=== PATIENT | female | born 1970 | race African-American/Black ===

== ENCOUNTER 2019-06-10 18:42 | Emergency (ER) | payer OTHER, SELFPAY ==
[2019-06-10 18:51] VITALS: BP 135/76; PULSE 78; RESP 16; TEMP 36.6; O2SAT 100
--- NOTE | 2019-06-10 18:59 | ED.GENADULT ---
HPI - General Adult General Chief complaint: Upper Respiratory Infection Stated complaint: eye irritation/cough/runny nose Time Seen by Provider: 06/10/19 19:00 Source: patient and RN notes reviewed Mode of arrival: ambulatory Limitations: no limitations History of Present Illness HPI narrative: 49-year-old -[place] female presents with complaints of right eye redness, irritation, small amount of white drainage, and itching for the past 7 day. No treatment. Slightly matted for the last 2 morning upon arising. Claire says she was recently exposed to [place] by one of her grandchildren. No pain. No copious drainage. Exacerbating factors is opening eye. Relieving factors is closing eyes. Wear glasses or contact lenses. No blurred vision, double vision, sensation of foreign body, or pain of eye with movement. Complains of upper respiratory symptoms for the past 7 days. Dry cough. No chest congestion. Vicks and Robitussin with little to no relief. No sore throat. No high fevers, drooling, neck or throat swelling. No chills. No abdominal pain, nausea, vomiting, or diarrhea. Remains active. Claire denies being , LMP 05/16/19. Some parts of this dictation were generated by voice recognition software and may contain typographical and/or grammatical inaccuracies. Related Data Allergies Allergy/AdvReac Type Severity Reaction Status Date / Time No Known Allergies Allergy Unknown Unverified 04/06/15 12:44 Review of Systems Review of Systems: Narrative: CONSTITUTIONAL: Denies fever, chills, sweats. EYES: Denies visual changes. Complains of RT eye redness, itching, and irritation, white drainag. ENT: Complains of rhinorrhea, congestion. Denies sore throat, otalgia. CARDIOVASCULAR: Denies chest pain, palpitations, edema. RESPIRATORY: Denies dyspnea, wheezing. Complains of dry cough. GASTROINTESTINAL: Denies abdominal pain, nausea, vomiting, diarrhea. GENITOURINARY: Denies dysuria, hematuria, abnormal discharge. SKIN: Denies rash or itching. MUSCULOSKELETAL: Denies acute back pain, joint pain, or myalgia. NEUROLOGIC: Denies numbness or focal weakness. PSYCHIATRIC: Denies anxiety or depression. All systems reviewed & are unremarkable except as noted in HPI and below. [facility] Past Medical History Medical History (Updated 06/11/19 @ 00:00 by Kadi Lind) No significant past medical history Surgical History Surgical History (Updated 06/10/19 @ 19:20 by CHAYO Jon) History of tubal ligation Family History Family History (Updated 06/10/19 @ 19:20 by CHAYO Jon) Other No significant family history Social History Social History (Updated 06/10/19 @ 19:21 by CHAYO Jon) Smoking status: Never smoker Second hand tobacco smoke exposure: Yes Alcohol intake: never Substance use: never Living arrangements: with family Occupation/Education: occupation Gender identity (if verbalized by the patient): Female Comments At time of signature, agree with nurse past medical, surgical, social, and family history. There is no relevant family history pertinent to the presenting complaint. Exam Narrative: Exam Narrative: GENERAL: This is a well-nourished, well-developed patient, in no apparent distress. HEAD: normocephalic, atraumatic. EYES: PERRL. Sclera clear/white to RT/LT eye. RT eye sclera slightly sima and clear, no swelling, no tenderness on palpation. Vision is grossly intact. No visible or palpable Hordeolum present, no drainable abscess. No foreign body or lesions were noted on eversion of upper eyelid. No concern for Juli-orbital cellulitis or orbital cellulitis. EARS: External ears normal, auditory canals clear and without drainage, TMs normal without perforation. Hearing grossly intact. NOSE: External nose normal with no obvious nasal discharge, nares with mild-moderate redness and turbinate, no rhinorrhea. THROAT: Mucous membranes moist, posteri
== END 2019-06-10 19:35 | disposition home or self-care (01) ==
PROVIDERS: Emergency Provider Nurse Practitioner Family
DX: J00 Acute nasopharyngitis [common cold] (principal); J01.90 Acute sinusitis, unspecified; H10.31 Unspecified acute conjunctivitis, right eye
CPT/HCPCS: 99213; G0463

== ENCOUNTER 2020-01-11 09:29 | Emergency (ER) | payer OTHER, SELFPAY ==
[2020-01-11 09:40] VITALS: BP 151/77; PULSE 74; RESP 20; TEMP 36.4; O2SAT 100
--- NOTE | 2020-01-11 09:49 | ED.GENADULT ---
HPI - General Adult General Chief complaint: Extremity Injury, Upper Stated complaint: neck/shoulder pain Time Seen by Provider: 01/11/20 09:49 Source: patient and RN notes reviewed Mode of arrival: ambulatory Limitations: no limitations History of Present Illness HPI narrative: 49-year-old -Filipino female presents with complaints of LT side neck and shoulder pain for the past 2 days. Unknown [id number] pain medication , last dose last night at 2200 without relief. No injury. Claire believes she slept wrong due to doubling pillows. No headache or numbness or weakness in the arms/upper extremities. LBM 01/08/20, normal. Denies numbness or tingling. Pain with movement of neck. Pain radiates from posterior neck into shoulders. No loss of mobility. No swelling. Relieving factor is rest. Denies fever or chills. The patient reports she have not been diagnosed with COVID-19. The patient reports she is not waiting for the results of a COVID-19 lab test. The patient reports she do not have fever, chills, weakness, or fatigue. The patient reports she do not have a new or worsening cough or shortness of breath. Denies chest pain. The patient reports she do not have any rhinorrhea, congestion, sore throat, loss of taste, nausea, vomiting, abdominal pain, and diarrhea. Tolerating po intake well. Denies recent traveling. Denies concerns for COVID-19 or exposures been home with limited outdoor exposure except for essential household needs, work (recently laid-off), and return home. At this time, patient is not suspected of having COVID-19. Some parts of this dictation were generated by voice recognition software and may contain typographical and/or grammatical inaccuracies. Related Data Allergies Allergy/AdvReac Type Severity Reaction Status Date / Time No Known Allergies Allergy Unknown Verified 01/11/20 09:44 Review of Systems Review of Systems: Narrative: CONSTITUTIONAL: Denies fever, chills, sweats. EYES: Denies visual changes, redness, discharge. ENT: Denies rhinorrhea, congestion, sore throat, otalgia. CARDIOVASCULAR: Denies chest pain, palpitations, edema. RESPIRATORY: Denies dyspnea, wheezing, cough. GASTROINTESTINAL: Denies abdominal pain, nausea, vomiting, diarrhea. GENITOURINARY: Denies dysuria, hematuria, abnormal discharge. SKIN: Denies rash or itching. MUSCULOSKELETAL: Denies acute back pain or myalgia. Complains of LT side neck and shoulder pain. NEUROLOGIC: Denies numbness, or focal weakness. PSYCHIATRIC: Denies anxiety or depression. [facility] Past Medical History Medical History (Updated 01/11/20 @ 10:13 by CHAYO Jon) No significant past medical history Surgical History Surgical History (Updated 06/10/19 @ 19:20 by CHAYO Jon) History of tubal ligation Family History Family History (Updated 06/10/19 @ 19:20 by CHAYO Jon) Other No significant family history Social History Social History (Updated 01/11/20 @ 13:27 by CHAYO Jon) Smoking status: Never smoker Tobacco type: cigarettes Second hand tobacco smoke exposure: Yes Alcohol intake: current Substance use: never Living arrangements: with family Occupation/Education: other Additional occupation/education comments: laid-off 2 weeks ago Gender identity (if verbalized by the patient): Female Sexual Orientation (if Verbalized by the Patient): Straight or Heterosexual Comments At time of signature, agree with nurse past medical, surgical, social, and family history. There is no relevant family history pertinent to the presenting complaint. Exam Narrative: Exam Narrative: GENERAL: This is a well-nourished, well-developed patient, in no apparent distress. Talks in full sentences and ambulates with steady gait without dyspnea. HEAD: normocephalic, atraumatic. EYES: PERRL. Sclera clear/white. Vision is grossly intact. NECK: Neck supple, Trachea is midline, skin i
[2020-01-11] MEDS: KETOROLAC (*BKC) 60 MG/2 ML VIAL IM (10:05)
== END 2020-01-11 10:20 | disposition home or self-care (01) ==
PROVIDERS: Emergency Provider Nurse Practitioner Family
DX: M43.6 Torticollis (principal)
CPT/HCPCS: 96372; 99213; G0463; J1885

== ENCOUNTER 2023-03-13 13:45 | Emergency (ER) | payer OTHER, SELFPAY ==
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
[2023-03-13 13:47] VITALS: BP 139/82; PULSE 75; RESP 18; TEMP 36.3; O2SAT 100
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
== END 2023-03-13 15:11 | disposition home or self-care (01) ==
PROVIDERS: Emergency Provider Emergency Medicine
DX: S16.1XXA Strain of muscle, fascia and tendon at neck level, initial encounter (principal); V79.9XXA Bus occupant (driver) (passenger) injured in unspecified traffic accident, initial encounter
CPT/HCPCS: 72125; 99284